=== PATIENT | female | born 1965 | race Two or more races ===

== ENCOUNTER → 2024-10-25 | Outpatient (CLI) | payer BC, SELFPAY ==
--- NOTE | 2024-10-25 16:27 | XR_ITS ---
Examination:Right hip AP, lateral, AP pelvis 3 views Technique: Hip AP lateral, AP pelvis, 3 views Exam date and time:October 25, 2024 1637 hrs. Indications: Right hip pain several years. Findings: Moderate osteopenia No acute fracture or hip dislocation No significant arthritic change Impression: No hip fracture or dislocation No significant arthritic change.
== END | disposition home or self-care (01) ==
PROVIDERS: Referring Provider Family Medicine; Visit Provider Family Medicine
DX: M77.9 Enthesopathy, unspecified (principal)
CPT/HCPCS: 73502

== ENCOUNTER 2025-05-22 09:20 | Day surgery (SDC) | payer BC, SELFPAY ==
[2025-05-22] VITALS (10 sets, daily range): BP systolic 116–178; BP diastolic 73–97; PULSE 69–97; RESP 11–17; TEMP 36.6–36.7; O2SAT 95–100; BMI 31.4
[2025-05-22] MEDS: SODIUM CHLORIDE 0.9% 500 ML 500 ML 20 ML IV (11:24)
[2025-05-22] MEDS: fentaNYL CIT INJ 50 mCg/ML AMP 2ML (ASD USE ONLY) IVP (11:32)
[2025-05-22] MEDS: MIDAZOLAM INJ 1 MG/ML VIAL 2 ML (ASD USE ONLY) 2 MG IVP (11:32)
[2025-05-22] MEDS: LIDOCAINE JELLY 2% 5 ML TUBE TOP (11:39)
== END 2025-05-22 12:50 | disposition home or self-care (01) ==
PROVIDERS: PCP Family Medicine; Referring Provider Specialist; Visit Provider Specialist
PROC: 0DBE8ZX Excision of Large Intestine, Via Natural or Artificial Opening Endoscopic, Diagnostic (ICD-10-PCS; CPT 45380; principal; 2025-05-22 09:00)
DX: K64.2 Third degree hemorrhoids (principal); K52.9 Noninfective gastroenteritis and colitis, unspecified
CPT/HCPCS: 45398; A4649; J1200; J2250; J3010; J7999; A9270